=== PATIENT | female | born 1955 | race Caucasian/White ===

== ENCOUNTER 2021-09-08 15:00 | Outpatient (RCR) | payer MEDICARE, MEDICAID, SELFPAY | END 2021-09-08 23:59 | disposition home or self-care (01) | LOC: ANHAUDIO 15:00 | PROVIDERS: PCP Family Medicine; Visit Provider Family Medicine | DX: Z46.1 Encounter for fitting and adjustment of hearing aid (principal) | CPT/HCPCS: 99199; V5014 ==